=== PATIENT | male | born 2005 | race Two or more races ===

== ENCOUNTER 2024-06-10 16:24 | Emergency (ER) | payer OTHER ==
[2024-06-10 16:28] VITALS: RESP 18
--- NOTE | 2024-06-10 16:36 | ED ---
Lower Extremity Injury HPI - General Chief Complaint: Extremity Injury, Lower Stated Complaint: Left foot toe injury Time Seen by Provider: 06/10/24 16:34 Source: patient, RN notes reviewed Mode of arrival: ambulatory Limitations: no limitations - History of Present Illness Initial Comments: 19-year-old male presented to ER with a chief complaint of left foot injury. Patient states he was playing sand volleyball and accidentally had a collision with his foot into another player's. He states his fourth digit took most of the impact. Since then he has been endorsing pain to his left fourth digit and has noted some swelling. He has not taken anything for pain at this time. Denies any paresthesias. Denies any other injuries or complaints. - Related Data Allergies Allergy/AdvReac Type Severity Reaction Status Date / Time No Known Allergies Allergy Verified 06/10/24 16:28 Review of Systems ROS Statement: Those systems with pertinent positive or pertinent negative responses have been documented in the HPI. ROS Other: All systems not noted in ROS Statement are negative. Past Medical History Past Medical History: No Reported History Past Surgical History: No Surgical Hx Reported Smoking Status: Never smoker Past Alcohol Use History: None Reported Past Drug Use History: None Reported General Exam Limitations: no limitations General appearance: alert, in no apparent distress Respiratory exam: Present: normal lung sounds bilaterally. Absent: respiratory distress, wheezes, rales, rhonchi, stridor Cardiovascular Exam: Present: regular rate, normal rhythm, normal heart sounds. Absent: systolic murmur, diastolic murmur, rubs, gallop, clicks Extremities exam: Present: tenderness (Tenderness and edema to left fourth toe. 2+ left dorsalis pedis pulse. No wounds, erythema or bruising. Patient has limited range of motion due to pain.) Skin exam: Present: warm, dry, intact, normal color. Absent: rash Course Vital Signs 06/10/24 16:26 Temperature 98.7 F Pulse Rate 68 Respiratory 18 Rate Blood Pressure 137/84 O2 Sat by Pulse 99 Oximetry Procedures - Orthopedic Splinting/Casting Injury #1 Side: left Lower Extremity Injury Location: toe Lower Extremity Immobilizer: post-op shoe, balaji tape Medical Decision Making - Medical Decision Making Was pt. sent in by a medical professional or institution (, PA, IN HOME TUTOR, urgent care, hospital, or detention...) When possible be specific @ -No Did you speak to anyone other than the patient for history (EMS, parent, family, police, friend...)? What history was obtained from this source @ -No Did you review nursing and triage notes (agree or disagree)? Why? @ -I reviewed and agree with nursing and triage notes Were old charts reviewed (outside hosp., previous admission, EMS record, old EKG, old radiological studies, urgent care reports/EKG's, detention records)? Report findings @ -No old charts were reviewed Differential Diagnosis (chest pain, altered mental status, abdominal pain women, abdominal pain men, vaginal bleeding, weakness, fever, dyspnea, syncope, headache, dizziness, GI bleed, back pain, seizure, CVA, palpatations, mental health, musculoskeletal)? @ -Differential Musculoskeletal; Muscular strain, contusion, ligament sprain, fracture, arthritis, septic arthritis, bursitis, cellulitis, muscle spasm, nerve compression, DVT, arterial occlusion, herpes zoster, electrolyte abnormality, tumor.... This is not meant to be in all inclusive list EKG interpreted by me (3pts min.). @ -None X-rays interpreted by me (1pt min.). @ -Left foot x-ray interpreted by me remarkable for a fracture of the fourth proximal phalanx. CT interpreted by me (1pt min.). @ -None done U/S interpreted by me (1pt. min.). @ -None done What testing was considered but not performed or refused? (CT, X-rays, U/S, labs)? Why? @ -None What meds were considered but not given or refused? Why? @ -Patient refused analgesic medications. Did you discuss the management of the patient with other professionals (professionals i.e. , PA, IN HOME TUTOR, lab, RT, psych nurse, social services coordinator, gifted program teacher, teacher, safety patrol officer, human services case manager)? Give summary @ -No Was smoking cessation discussed for >3mins.? @ -No Was critical care preformed (if so, how long)? @ -No Were there social determinants of health that impacted care today? How? (Homelessness, low income, unemployed, alcoholism, drug addiction, transportation, low edu. Level, literacy, decrease access to med. care, correction, rehab)? @ -No Was there de-escalation of care discussed even if they declined (Discuss DNR or withdrawal of care, Hospice)? DNR status @ -No What co-morbidities impacted this encounter? (DM, HTN, Smoking, COPD, CAD, Cancer, CVA, ARF, Chemo, Hep., AIDS, mental health diagnosis, sleep apnea, morbid obesity)? @ -None Was patient admitted / discharged? Hospital course, mention meds given and route, prescriptions, significant lab abnormalities, going to OR and other pertinent info. @ -Discharged. 19-year-old male presented to the ER with a chief complaint of left foot injury. History and physical exam completed. Vitals stable. Left lower extremity neurovascular intact. There is tenderness and mild edema to left fourth digit. X-rays obtained significant for fracture of the fourth proximal phalanx. Patient will be balaji taped and placed in an orthopedic postop shoe. Advise close follow-up with orthopedics, referral given. Strict return parameters discussed. Patient discharged in stable condition. Patient verbally expressed understanding and agreement care plan. Case discussed with ED attending, Dr. Porter. Undiagnosed new problem with uncertain prognosis? @ -No Drug Therapy requiring intensive monitoring for toxicity (Heparin, Nitro, Insulin, Cardizem)? @ -No Were any procedures done? @ -Yes splint Diagnosis/symptom? @ -Left fourth proximal phalanx fracture of toe Acute, or Chronic, or Acute on Chronic? @ -Acute Uncomplicated (without systemic symptoms) or Complicated (systemic symptoms)? @ -Uncomplicated Side effects of treatment? @ -No Exacerbation, Progression, or Severe Exacerbation? @ -No Poses a threat to life or bodily function? How? (Chest pain, [place], [place], pneumonia, PE, COPD, DKA, ARF, appy, cholecystitis, CVA, Diverticulitis, Homicidal, Suicidal, threat to staff... and all critical care pts) @ -No - Radiology Data Radiology results: report reviewed, image reviewed Disposition Clinical Impression: Fracture of proximal phalanx of toe Disposition: HOME SELF-CARE Condition: Stable Instructions (If sedation given, give patient instructions): Toe Fracture (ED) Additional Instructions: I recommend [id number] Tylenol and Motrin for pain control. Continue to ice, elevate and rest. Follow-up with orthopedics. Return to the ER for any new or worsening concerns. Is patient prescribed a controlled substance at d/c from ED?: No Referrals: Al-Matchy,Judah, MD [Primary Care Provider] - 1-2 days Clive Bear DO [REFERRING] - 1-2 days Time of Disposition: 17:32
--- NOTE | 2024-06-10 17:17 | XR ---
EXAMINATION TYPE: XR foot complete LT DATE OF EXAM: 06/10/2024 4:45 PM CLINICAL INDICATION:Male, 19 years old with history of injury 4th digit; [facility] COMPARISON: None TECHNIQUE: XR foot complete LT examined in the AP, oblique, and lateral projections. FINDINGS/IMPRESSION: Acute fracture through the fourth digit proximal phalanx with mild displacement. Soft tissue swelling of the foot
[2024-06-10 17:40] VITALS: BP 126/86; PULSE 72; TEMP 98.1
== END 2024-06-10 17:40 | disposition home or self-care (01) ==
LOC: EC 16:24
DX: S92.515A Nondisplaced fracture of proximal phalanx of left lesser toe(s), initial encounter for closed fracture (principal); W50.0XXA Accidental hit or strike by another person, initial encounter; Y93.68 Activity, volleyball (beach) (court)
CPT/HCPCS: 99283